=== PATIENT | female | born 1990 | race Caucasian/White ===

== ENCOUNTER 2018-09-13 17:46 | Emergency (ER) | payer OTHER ==
[~2018-09-13] VITALS: Ht 160 cm; Wt 61.4 kg
[2018-09-13] MEDS: SULFAMETHOX/TRIMETH DS 800-160 MG/TABLET PO ONE (18:44)
[2018-09-13] MEDS: CEPHALEXIN MONOHYDRATE 500 MG CAPSULE PO ONE (18:44)
[2018-09-13] MEDS: PERTUSS(ACELL),DIPH,TET VAC/PF 0.5 ML VIAL IM ONE (18:45)
[2018-09-13 18:50] VITALS: BP 130/69
== END 2018-09-13 19:02 | disposition home or self-care (01) ==
LOC: EMS 17:46
DX: L03.114 Cellulitis of left upper limb (principal); F17.210 Nicotine dependence, cigarettes, uncomplicated; F19.90 Other psychoactive substance use, unspecified, uncomplicated
CPT/HCPCS: 90471; 90715

== ENCOUNTER 2018-09-20 05:58 | Emergency (ER) | payer OTHER ==
[~2018-09-20] VITALS: Ht 160 cm; Wt 61.3 kg
[2018-09-20] MEDS ORDERED: DEPOP150I IM (06:20)
[2018-09-20] MEDS ORDERED: LIDOCAINE 1% 10 ML VIAL INJ ONE (09:00)
[2018-09-20 09:58] VITALS: BP 135/90
== END 2018-09-20 09:40 | disposition left against medical advice (07) ==
LOC: EMS 06:00
DX: L02.414 Cutaneous abscess of left upper limb (principal); F17.210 Nicotine dependence, cigarettes, uncomplicated; F19.90 Other psychoactive substance use, unspecified, uncomplicated
CPT/HCPCS: 99283; J3490